=== PATIENT | female | born 1995 | race African-American/Black ===

== ENCOUNTER 2021-01-23 10:03 | Emergency (ER) | payer MEDICAID ==
[~2021-01-23] VITALS: Ht 172.7 cm; Wt 100.0 kg
[2021-01-23] MEDS ORDERED: ONDANSETRON HCL 4MG/2ML INJ IV STA (10:30)
[2021-01-23] MEDS ORDERED: MORPHINE SULFATE 4 MG/ML CPJ (NOT FOR IM USE) IV STA (10:30)
[2021-01-23] MEDS ORDERED: SODIUM CHLORIDE 0.9% 1,000 ML IV ONE (10:30)
[2021-01-23 11:06] LABS: BASOPHILS % 0.6 % (0.0-2.0); EOSINOPHILS % 0.9 % (0.0-5.0); HEMATOCRIT. 39.7 % (36.0-48.0); HEMOGLOBIN. 13.1 g/dL (12.0-16.0); LYMPHOCYTES % 15.6 % (20.0-50.0); MEAN CORPUSCULAR HEMOGLOBIN 26.1 pg (28.0-32.0); MEAN CORPUSCULAR VOLUME 79.2 fL (81.0-99.0); MEAN PLATELET VOLUME 9.4 fl (7.4-10.4); MONOCYTES % 4.8 % (2.0-8.0); NEUTROPHILS % 78.1 % (40.0-76.0); PLATELET 312 x1000/uL (130-400); RED BLOOD CELL COUNT 5.02 mill/uL (4.2-5.4); RED CELL DISTRIBUTION WIDTH 13.6 % (11.6-14.6)
[2021-01-23 11:11] LABS: CHLORIDE 104 mEq/L (98-107)
[2021-01-23 11:20] LABS: B-HCG QUANTITATIVE < 1 mIU/mL (<3)
[2021-01-23 12:34] LABS: CLARITY URINE CLOUDY (CLEAR); COLOR URINE YELLOW (YELLOW); KETONES URINE 3+ (NEGATIVE); LEUKOCYTE ESTERASE URINE NEGATIVE (NEGATIVE); NITRITE URINE NEGATIVE (NEGATIVE); OCCULT BLOOD URINE NEGATIVE (NEGATIVE); PH URINE 7.5 (4.5-8.0); PROTEIN URINE 1+ (NEGATIVE); SPECIFIC GRAVITY URINE 1.035 (1.005-1.030); UROBILINOGEN URINE 0.2 E.U./dL (0.2-1.0)
[2021-01-23] MEDS ORDERED: HYDROMORPHONE HCL/PF 2MG/ML CPJ IV ONE (13:00)
[2021-01-23] MEDS ORDERED: CEPH500T MT (14:14)
[2021-01-23] MEDS ORDERED: TRAM50TA3 MT (14:14)
[2021-01-23] MEDS ORDERED: METR70GE17 VG (14:15)
[2021-01-23 15:14] VITALS: BP 130/68
[2021-01-23] MEDS ORDERED: IOHEXOL-300 100 ML BOTTLE ONE (15:20)
== END 2021-01-23 15:14 | disposition home or self-care (01) ==
LOC: ER 10:40
DX: N39.0 Urinary tract infection, site not specified (principal); R10.32 Left lower quadrant pain
CPT/HCPCS: 36415; 74177; 76830; 76856; 80053; 81003; 83690; 84702; 85025; 96361; 96374; 96375; 99285; J1170; J2270; J2405; J7030; Q9967; Z7610

== ENCOUNTER 2021-01-23 19:19 | Emergency (ER) | payer MEDICAID ==
[~2021-01-23] VITALS: Ht 172.7 cm; Wt 100.0 kg
[~2021-01-23 19:19] MED LIST: CEPH500T MT; METR70GE17 VG; TRAM50TA3 MT
[2021-01-23 19:26] VITALS: BP 148/82
[2021-01-23] MEDS ORDERED: KETOROLAC 30MG/ML VIAL IV STA (20:14)
[2021-01-23] MEDS ORDERED: MIDAZOLAM HCL 2 MG/2 ML VIAL IV ONE (20:15)
[2021-01-23] MEDS ORDERED: SODIUM CHLORIDE 0.9% 1,000 ML IV ONE (20:15)
== END 2021-01-23 21:01 | disposition left against medical advice (07) ==
LOC: ER 19:19
DX: R10.32 Left lower quadrant pain (principal); E11.9 Type 2 diabetes mellitus without complications; J45.909 Unspecified asthma, uncomplicated; Z79.4 Long term (current) use of insulin
CPT/HCPCS: 93005; 99283; J7030; J1885; J2250

== ENCOUNTER 2022-04-03 22:13 | Emergency (ER) | payer MEDICAID ==
[~2022-04-03] VITALS: Ht 170.2 cm; Wt 135.2 kg
[~2022-04-03 22:13] MED LIST changes: +AMLO10TA80 MT; -CEPH500T MT; +INSU100I24 SQ; +METO-293 MT; +[UNRECOGNIZED DRUG - OTHER]
[2022-04-03] MEDS ORDERED: METOCLOPRAMIDE HCL 10MG/2ML VIAL IV STA (22:21)
[2022-04-03] MEDS ORDERED: HALOPERIDOL LACTATE 5MG/ML VIAL IM ONE (22:30)
[2022-04-03 23:13] LABS: BASOPHILS % 0.5 % (0.0-2.0); HEMATOCRIT. 39.3 % (36.0-48.0); HEMOGLOBIN. 12.9 g/dL (12.0-16.0); LYMPHOCYTES % 8.7 % (20.0-50.0); MEAN CORPUSCULAR VOLUME 79.2 fL (81.0-99.0); MEAN PLATELET VOLUME 8.8 fl (7.4-10.4); MONOCYTES % 6.7 % (2.0-8.0); NEUTROPHILS % 84.1 % (40.0-76.0); PLATELET 327 x1000/uL (130-400); RED BLOOD CELL COUNT 4.97 mill/uL (4.2-5.4)
[2022-04-03 23:19] LABS: CHLORIDE 99 mEq/L (98-107)
[2022-04-03 23:27] LABS: BETA HYDROXYBUTYRATE 2.3 mMol/L (0.0-0.3); ETHANOL BLOOD < 10 mg/dL
[2022-04-04 00:11] VITALS: BP 118/67
== END 2022-04-04 00:59 | disposition home or self-care (01) ==
LOC: ER 22:13
DX: R10.9 Unspecified abdominal pain (principal); R11.10 Vomiting, unspecified; E11.65 Type 2 diabetes mellitus with hyperglycemia; F12.10 Cannabis abuse, uncomplicated; F17.290 Nicotine dependence, other tobacco product, uncomplicated; J45.909 Unspecified asthma, uncomplicated; Z79.899 Other long term (current) drug therapy
CPT/HCPCS: 36415; 80053; 80320; 82010; 83690; 85025; 96372; 96374; 99284; J1630; J2765; G0480

== ENCOUNTER 2022-05-03 23:47 | Emergency (ER) | payer MEDICAID ==
[~2022-05-03] VITALS: Ht 170.2 cm; Wt 117.0 kg
[2022-05-04] MEDS ORDERED: ONDANSETRON HCL 4MG/2ML INJ IV STA (00:54)
[2022-05-04] MEDS ORDERED: FAMOTIDINE 20MG/2ML VIAL IV STA (00:54)
[2022-05-04] MEDS ORDERED: HALOPERIDOL LACTATE 5MG/ML VIAL IM ONE (01:00)
[2022-05-04] MEDS ORDERED: SODIUM CHLORIDE 0.9% 1,000 ML IV ONE (01:00)
[2022-05-04 04:29] LABS: HEMOGLOBIN. 11.7 g/dL (12.0-16.0); MEAN CORPUSCULAR HEMOGLOBIN 25.9 pg (28.0-32.0); MEAN CORPUSCULAR VOLUME 79.8 fL (81.0-99.0); PLATELET 344 x1000/uL (130-400); RED BLOOD CELL COUNT 4.52 mill/uL (4.2-5.4); RED CELL DISTRIBUTION WIDTH 14.2 % (11.6-14.6)
[2022-05-04 04:38] LABS: CHLORIDE 105 mEq/L (98-107)
[2022-05-04 04:41] LABS: HCG SCREEN NEGATIVE
[2022-05-04 04:56] LABS: PLATELET ESTIMATE NORMAL
[2022-05-04 05:00] VITALS: BP 115/77
[2022-05-04] MEDS ORDERED: METO-293 MT (05:26)
[2022-05-04] MEDS ORDERED: TRAM50TA3 MT (05:26)
== END 2022-05-04 06:14 | disposition home or self-care (01) ==
LOC: ER 23:47
DX: R10.32 Left lower quadrant pain (principal); J45.909 Unspecified asthma, uncomplicated; E11.9 Type 2 diabetes mellitus without complications; F12.10 Cannabis abuse, uncomplicated
CPT/HCPCS: 36415; 80053; 83605; 83690; 84703; 85025; 96361; 96372; 96374; 96375; 99284; J1630; J2405; J3490; J7030

== ENCOUNTER 2022-05-23 19:50 | Emergency (ER) | payer MEDICAID ==
[~2022-05-23] VITALS: Ht 167.6 cm; Wt 91.0 kg
[2022-05-23] MEDS ORDERED: CALCIUM GLUCONATE 100MG/ML 10ML VIAL IV ONE (21:30)
[2022-05-23] MEDS ORDERED: MAGNESIUM 1 G PREMIX 100 ML IV ONE (21:30)
[2022-05-23] MEDS ORDERED: FAMOTIDINE 20MG/2ML VIAL IV ONE (21:45)
[2022-05-23] MEDS ORDERED: METOCLOPRAMIDE HCL 10MG/2ML VIAL IV ONE (21:45)
[2022-05-23] MEDS ORDERED: MORPHINE SULFATE 4 MG/ML CPJ (NOT FOR IM USE) IV ONE (22:30)
[2022-05-23 23:00] LABS: BASOPHILS % 0.3 % (0.0-2.0); EOSINOPHILS % 0.5 % (0.0-5.0); HEMATOCRIT. 36.7 % (36.0-48.0); HEMOGLOBIN. 11.8 g/dL (12.0-16.0); LYMPHOCYTES % 12.8 % (20.0-50.0); MEAN CORPUSCULAR HEMOGLOBIN 26.3 pg (28.0-32.0); MEAN PLATELET VOLUME 8.9 fl (7.4-10.4); MONOCYTES % 5.4 % (2.0-8.0); PLATELET 342 x1000/uL (130-400); RED BLOOD CELL COUNT 4.48 mill/uL (4.2-5.4); RED CELL DISTRIBUTION WIDTH 14.4 % (11.6-14.6)
[2022-05-23 23:03] LABS: CHLORIDE 100 mEq/L (98-107)
[2022-05-23 23:07] LABS: PROTHROMBIN TIME 11.2 sec (9.6-11.0)
[2022-05-23 23:26] LABS: CLARITY URINE CLEAR (CLEAR); COLOR URINE DARK YELLOW (YELLOW); KETONES URINE 4+ (NEGATIVE); LEUKOCYTE ESTERASE URINE 1+ (NEGATIVE); NITRITE URINE POSITIVE (NEGATIVE); OCCULT BLOOD URINE TRACE (NEGATIVE); PH URINE 5.5 (4.5-8.0); PROTEIN URINE 1+ (NEGATIVE); SPECIFIC GRAVITY URINE 1.037 (1.005-1.030)
[2022-05-23] MEDS ORDERED: KETOROLAC 15MG/ML VIAL IV ONE (23:45)
[2022-05-24] MEDS ORDERED: DIATR MEGLU/DIATRIZOATE SOLN 30ML ONE (01:14)
[2022-05-24 04:00] VITALS: BP 150/79
[2022-05-24] MEDS ORDERED: VISCOUS LIDOCAINE 2% 15 ML UDC PO ONE (04:45)
[2022-05-24] MEDS ORDERED: CAPSAICIN 0.075% CREAM 60GM TOP PRN (04:45)
[2022-05-24] MEDS ORDERED: MAGNESIUM/ALUMINUM HYDROXIDE/SIMETHICONE 30ML UDC PO ONE (04:45)
[2022-05-24] MEDS ORDERED: IOHEXOL-300 100 ML BOTTLE ONE (05:03)
[2022-05-24] MEDS ORDERED: CEPH500C2 MT (06:23)
[2022-05-24] MEDS ORDERED: ONDA4TAB50 MT (06:23)
== END 2022-05-24 05:35 | disposition home or self-care (01) ==
LOC: ER 19:50
DX: E11.43 Type 2 diabetes mellitus with diabetic autonomic (poly)neuropathy (principal); K31.84 Gastroparesis; F12.188 Cannabis abuse with other cannabis-induced disorder; K56.1 Intussusception; K52.9 Noninfective gastroenteritis and colitis, unspecified; J45.909 Unspecified asthma, uncomplicated; Z79.4 Long term (current) use of insulin
CPT/HCPCS: 36415; 74178; 80053; 81003; 81025; 83605; 83690; 83735; 85025; 85610; 93005; 96365; 96366; 96375; 99285; J0610; J1885; J2270; J2765; J3475; J3490; Q9963; Q9967

== ENCOUNTER 2022-05-24 06:06 | Emergency (ER) | payer MEDICAID ==
[~2022-05-24] VITALS: Ht 175.3 cm; Wt 123.0 kg
[2022-05-24 06:07] VITALS: BP 133/78
[2022-05-24] MEDS ORDERED: ONDA4TAB50 MT (06:23)
[2022-05-24] MEDS ORDERED: CEPH500C2 MT (06:23)
[2022-05-24] MEDS ORDERED: HALOPERIDOL LACTATE 5MG/ML VIAL IM ONE (06:30)
== END 2022-05-24 06:59 | disposition home or self-care (01) ==
LOC: ER 06:06
DX: N30.00 Acute cystitis without hematuria (principal); E11.9 Type 2 diabetes mellitus without complications; J45.909 Unspecified asthma, uncomplicated; Z79.4 Long term (current) use of insulin
CPT/HCPCS: 96372; 99283; J1630

== ENCOUNTER 2022-05-25 04:42 | Emergency (ER) | payer MEDICAID ==
[~2022-05-25] VITALS: Ht 175.3 cm; Wt 100.0 kg
[~2022-05-25 04:42] MED LIST changes: +CEPH500C2 MT; +ONDA4TAB50 MT
[2022-05-25 04:52] VITALS: BP 189/117
[2022-05-25] MEDS ORDERED: VISCOUS LIDOCAINE 2% 15 ML UDC PO ONE (05:00)
[2022-05-25] MEDS ORDERED: MAGNESIUM/ALUMINUM HYDROXIDE/SIMETHICONE 30ML UDC PO ONE (05:00)
== END 2022-05-25 05:04 | disposition left against medical advice (07) ==
LOC: ER 04:42
DX: R10.9 Unspecified abdominal pain (principal); G89.29 Other chronic pain; R11.10 Vomiting, unspecified; J45.909 Unspecified asthma, uncomplicated; E11.9 Type 2 diabetes mellitus without complications; F12.10 Cannabis abuse, uncomplicated; Z79.899 Other long term (current) drug therapy
CPT/HCPCS: 99283

== ENCOUNTER 2023-08-16 23:44 | Emergency (ER) | payer MEDICAID ==
[~2023-08-16] VITALS: Ht 170.2 cm; Wt 80.0 kg
[2023-08-16 23:46] VITALS: TEMP 98.5; O2SAT 98
[2023-08-17] MEDS ORDERED: FAMOTIDINE 20MG/2ML VIAL IV STA (00:50)
[2023-08-17] MEDS ORDERED: ONDANSETRON HCL 4MG/2ML INJ IV STA ×2 (00:50→03:41)
[2023-08-17] MEDS ORDERED: KETOROLAC 30MG/ML VIAL IV STA (00:50)
[2023-08-17] MEDS ORDERED: SODIUM CHLORIDE 0.9% 1,000 ML IV ONE (01:00)
[2023-08-17] MEDS ORDERED: HALOPERIDOL LACTATE 5MG/ML VIAL IM ONE (01:00)
[2023-08-17 01:13] LABS: BASOPHILS % 0.3 % (0.0-2.0); EOSINOPHILS % 0.5 % (0.0-5.0); HEMATOCRIT. 34.6 % (36.0-48.0); HEMOGLOBIN. 11.1 g/dL (12.0-16.0); LYMPHOCYTES % 14.3 % (20.0-50.0); MEAN CORPUSCULAR HEMOGLOBIN 25.8 pg (28.0-32.0); MEAN CORPUSCULAR HGB CONC 32.1 g/dL (31.0-37.0); MEAN CORPUSCULAR VOLUME 80.5 fL (81.0-99.0); MEAN PLATELET VOLUME 8.3 fl (7.4-10.4); MONOCYTES % 6.5 % (2.0-8.0); NEUTROPHILS % 78.4 % (40.0-76.0); PLATELET 369 x1000/uL (130-400); RED CELL DISTRIBUTION WIDTH 15.2 % (11.6-14.6); WHITE BLOOD COUNT 10.8 x1000/uL (4.5-11.0)
[2023-08-17 01:26] LABS: HCG SCREEN NEGATIVE
[2023-08-17 01:48] LABS: *AMPHETAMINES SCREEN URINE NEGATIVE (NEGATIVE); *BARBITURATES SCREEN URINE NEGATIVE (NEGATIVE); *BENZODIAZEPINES SCREEN URINE NEGATIVE (NEGATIVE); *COCAINE SCREEN URINE NEGATIVE (NEGATIVE); CANNABINOID URINE SCREEN PRESUMPTIVE POSITIVE (NEGATIVE); ECSTASY MDMA SCREEN URINE NEGATIVE (NEGATIVE); METHADONE URINE SCREEN Neg (NEGATIVE); OPIATES URINE SCREEN PRESUMPTIVE POSITIVE (NEGATIVE); PHENCYCLIDINE URINE SCREEN NEGATIVE (NEGATIVE)
[2023-08-17 02:44] LABS: CLARITY URINE CLOUDY (CLEAR); COLOR URINE YELLOW (YELLOW); PROTEIN URINE TRACE (NEGATIVE); SPECIFIC GRAVITY URINE 1.025 (1.005-1.030)
[2023-08-17 02:45] LABS: GLUCOSE URINE NEGATIVE (NEGATIVE); KETONES URINE 3+ (NEGATIVE); LEUKOCYTE ESTERASE URINE 1+ (NEGATIVE); NITRITE URINE NEGATIVE (NEGATIVE); OCCULT BLOOD URINE NEGATIVE (NEGATIVE); UROBILINOGEN URINE 0.2 E.U./dL (0.2-1.0)
[2023-08-17] MEDS ORDERED: CEFTRIAXONE 1GM PREMIX 50 ML IV NR (03:00)
[2023-08-17 03:29] LABS: SQUAMOUS EPITHELIAL CELL URINE 1+ /lpf (RARE/1+)
[2023-08-17 03:35] LABS: WBC URINE 15-25 /hpf (0-2)
[2023-08-17 03:37] LABS: BACTERIA URINE 1+; TRICHOMONAS URINE 1+
[2023-08-17] MEDS ORDERED: HYDROCODONE/ACETAMINOPHEN 5/325MG TABLET PO STA (03:41)
[2023-08-17] MEDS ORDERED: ONDA4TAB11 PO (03:51)
[2023-08-17] MEDS ORDERED: TRAM-529 PO (03:51)
[2023-08-17] MEDS ORDERED: SULF1TAB48 PO (03:51)
[2023-08-17 03:57] VITALS: BP 137/93; PULSE 69; RESP 18
[2023-08-17 04:00] LABS: CHLORIDE 104 mEq/L (98-107); POTASSIUM 3.6 mEq/L (3.5-5.1); SODIUM 138 mEq/L (136-145)
[2023-08-17] MEDS ORDERED: METRONIDAZOLE 500 MG PREMIX 100 ML IV NR (04:00)
[2023-08-17 04:01] LABS: GLUCOSE 111 mg/dL (70-105)
[2023-08-17 04:02] LABS: ALBUMIN 4.4 g/dL (3.2-4.8); BILIRUBIN TOTAL 0.6 mg/dL (0.1-1.0); CALCIUM 9.2 mg/dL (8.7-10.4); CREATININE 0.7 mg/dL (0.6-1.0); PROTEIN TOTAL 6.9 g/dL (6.0-8.3); UREA NITROGEN BLOOD < 5 mg/dL (9-23)
[2023-08-17] MEDS ORDERED: METR-167 MT (04:02)
[2023-08-17 04:03] LABS: ALANINE AMINOTRANSFERASE 16 IU/L (10-49); ASPARTATE AMINOTRANSFERASE 20 IU/L (<34); ETHANOL BLOOD < 10 mg/dL (<10)
== END 2023-08-17 05:20 | disposition home or self-care (01) ==
LOC: ER 23:44
DX: N39.0 Urinary tract infection, site not specified (principal); R10.32 Left lower quadrant pain; A59.9 Trichomoniasis, unspecified; F14.10 Cocaine abuse, uncomplicated; J45.909 Unspecified asthma, uncomplicated; E11.9 Type 2 diabetes mellitus without complications; K21.9 Gastro-esophageal reflux disease without esophagitis; F12.10 Cannabis abuse, uncomplicated
CPT/HCPCS: 81025; 99285; 80053; 80305; 81003; 80320; 84703; 83690; 85025; 87086; 36415; 74176; J0696; J3490 ×2; J1630; J1885; J2405; J7030; Z7610 ×3; G0480

== ENCOUNTER 2023-08-23 05:50 | Emergency (ER) | payer MEDICAID ==
[~2023-08-23] VITALS: Ht 175.3 cm; Wt 127.0 kg
[~2023-08-23 05:50] MED LIST changes: +METR-167 MT; +ONDA4TAB11 PO; +SULF1TAB48 PO; +TRAM-529 PO
[2023-08-23 05:55] VITALS: TEMP 98.5; O2SAT 99
[2023-08-23 07:02] LABS: BASOPHILS % 0.6 % (0.0-2.0); DIFFERENTIAL COMMENT 0; EOSINOPHILS % 1.3 % (0.0-5.0); HEMATOCRIT. 33.6 % (36.0-48.0); HEMOGLOBIN. 10.8 g/dL (12.0-16.0); MEAN CORPUSCULAR HEMOGLOBIN 25.3 pg (28.0-32.0); MEAN CORPUSCULAR HGB CONC 32.1 g/dL (31.0-37.0); MEAN CORPUSCULAR VOLUME 78.9 fL (81.0-99.0); MEAN PLATELET VOLUME 8.6 fl (7.4-10.4); MONOCYTES % 7.7 % (2.0-8.0); NEUTROPHILS % 79.4 % (40.0-76.0); PLATELET 303 x1000/uL (130-400); RED BLOOD CELL COUNT 4.25 mill/uL (4.2-5.4); RED CELL DISTRIBUTION WIDTH 16.2 % (11.6-14.6); WHITE BLOOD COUNT 9.6 x1000/uL (4.5-11.0)
[2023-08-23 07:08] LABS: HCG SCREEN NEGATIVE
[2023-08-23 07:13] LABS: ALANINE AMINOTRANSFERASE 14 IU/L (10-49); ALBUMIN 4.2 g/dL (3.2-4.8); ASPARTATE AMINOTRANSFERASE 15 IU/L (<34); BILIRUBIN TOTAL 0.7 mg/dL (0.1-1.0); CALCIUM 9.2 mg/dL (8.7-10.4); CARBON DIOXIDE 25 mEq/L (21-32); CHLORIDE 107 mEq/L (98-107); CREATININE 0.7 mg/dL (0.6-1.0); GLUCOSE 151 mg/dL (70-105); POTASSIUM 3.6 mEq/L (3.5-5.1); SODIUM 140 mEq/L (136-145); UREA NITROGEN BLOOD 6 mg/dL (9-23)
[2023-08-23 07:14] LABS: ETHANOL BLOOD < 10 mg/dL (<10)
[2023-08-23 09:00] VITALS: BP 132/84; PULSE 72; RESP 16
[2023-08-23] MEDS ORDERED: KETOROLAC 60MG/2ML VIAL IM ONE (09:00)
[2023-08-23] MEDS ORDERED: ONDANSETRON HCL 4MG/2ML INJ IM ONE (09:00)
[2023-08-23] MEDS ORDERED: HALOPERIDOL LACTATE 5MG/ML VIAL IM ONE (09:00)
[2023-08-23 10:10] LABS: CLARITY URINE CLOUDY (CLEAR); COLOR URINE YELLOW (YELLOW); GLUCOSE URINE NEGATIVE (NEGATIVE); PROTEIN URINE TRACE (NEGATIVE)
[2023-08-23 10:11] LABS: KETONES URINE NEGATIVE (NEGATIVE); LEUKOCYTE ESTERASE URINE TRACE (NEGATIVE); NITRITE URINE NEGATIVE (NEGATIVE); OCCULT BLOOD URINE NEGATIVE (NEGATIVE); UROBILINOGEN URINE 0.2 E.U./dL (0.2-1.0)
[2023-08-23 10:16] LABS: BACTERIA URINE 2+; RBC URINE 0-2 /hpf (0-2); SQUAMOUS EPITHELIAL CELL URINE 2+ /lpf (RARE/1+); YEAST URINE NONE SEEN
[2023-08-23 10:31] LABS: *AMPHETAMINES SCREEN URINE NEGATIVE (NEGATIVE); *BARBITURATES SCREEN URINE NEGATIVE (NEGATIVE); *BENZODIAZEPINES SCREEN URINE NEGATIVE (NEGATIVE); *COCAINE SCREEN URINE NEGATIVE (NEGATIVE); CANNABINOID URINE SCREEN PRESUMPTIVE POSITIVE (NEGATIVE); ECSTASY MDMA SCREEN URINE NEGATIVE (NEGATIVE); METHADONE URINE SCREEN Neg (NEGATIVE); OPIATES URINE SCREEN NEGATIVE (NEGATIVE); PHENCYCLIDINE URINE SCREEN NEGATIVE (NEGATIVE)
[2023-08-23] MEDS ORDERED: ONDA4TAB11 PO (12:04)
[2023-08-23] MEDS ORDERED: FAMO-134 MT (12:04)
== END 2023-08-23 12:56 | disposition home or self-care (01) ==
LOC: ER 05:57
DX: R11.2 Nausea with vomiting, unspecified (principal); K31.84 Gastroparesis; F12.90 Cannabis use, unspecified, uncomplicated; J45.909 Unspecified asthma, uncomplicated
CPT/HCPCS: 80053; 80305; 81003; 81025; 80320; 84703; 83690; 85025; 36415; 76705; 96372; 99285; J1630; J1885; J2405; Z7610; G0480

== ENCOUNTER 2023-08-29 00:43 | Emergency (ER) | payer MEDICAID ==
[~2023-08-29] VITALS: Ht 172.7 cm; Wt 80.0 kg
[~2023-08-29 00:43] MED LIST changes: +FAMO-134 MT
[2023-08-29 00:49] VITALS: BP 153/98; PULSE 78; RESP 22; TEMP 98.2; O2SAT 98
== END 2023-08-29 05:00 | disposition left against medical advice (07) ==
LOC: ER 01:49
DX: R10.9 Unspecified abdominal pain (principal); Z53.21 Procedure and treatment not carried out due to patient leaving prior to being seen by health care provider
CPT/HCPCS: 99281

== ENCOUNTER 2023-08-31 02:07 | Emergency (ER) | payer MEDICAID ==
[~2023-08-31] VITALS: Ht 177.8 cm; Wt 100.0 kg
[2023-08-31 02:19] VITALS: TEMP 98.6; O2SAT 99
[2023-08-31] MEDS ORDERED: ONDANSETRON HCL 4MG/2ML INJ IV STA (03:29)
[2023-08-31] MEDS ORDERED: MORPHINE SULFATE 4 MG/ML CPJ (NOT FOR IM USE) IV STA (03:29)
[2023-08-31] MEDS ORDERED: SODIUM CHLORIDE 0.9% 1,000 ML IV ONE (03:30)
[2023-08-31 03:51] LABS: BASOPHILS % 0.4 % (0.0-2.0); EOSINOPHILS % 0.2 % (0.0-5.0); HEMATOCRIT. 33.7 % (36.0-48.0); HEMOGLOBIN. 10.6 g/dL (12.0-16.0); LYMPHOCYTES % 9.8 % (20.0-50.0); MEAN CORPUSCULAR HEMOGLOBIN 25.5 pg (28.0-32.0); MEAN CORPUSCULAR HGB CONC 31.6 g/dL (31.0-37.0); MEAN CORPUSCULAR VOLUME 80.8 fL (81.0-99.0); MEAN PLATELET VOLUME 8.5 fl (7.4-10.4); MONOCYTES % 2.8 % (2.0-8.0); NEUTROPHILS % 86.8 % (40.0-76.0); PLATELET 298 x1000/uL (130-400); RED BLOOD CELL COUNT 4.17 mill/uL (4.2-5.4); RED CELL DISTRIBUTION WIDTH 16.2 % (11.6-14.6); WHITE BLOOD COUNT 7.5 x1000/uL (4.5-11.0)
[2023-08-31 04:18] LABS: ALANINE AMINOTRANSFERASE 20 IU/L (10-49); ASPARTATE AMINOTRANSFERASE 21 IU/L (<34); BETA HYDROXYBUTYRATE 0.1 mMol/L (0.0-0.3); BILIRUBIN TOTAL 0.3 mg/dL (0.1-1.0); CALCIUM 8.9 mg/dL (8.7-10.4); CARBON DIOXIDE 26 mEq/L (21-32); CHLORIDE 105 mEq/L (98-107); CREATININE 0.7 mg/dL (0.6-1.0); GLUCOSE 201 mg/dL (70-105); POTASSIUM 3.7 mEq/L (3.5-5.1); SODIUM 139 mEq/L (136-145); UREA NITROGEN BLOOD 6 mg/dL (9-23)
[2023-08-31 04:41] LABS: ETHANOL BLOOD < 10 mg/dL (<10)
[2023-08-31 05:17] LABS: HCG SCREEN NEGATIVE
[2023-08-31] MEDS ORDERED: ONDA4TAB50 MT (05:23)
[2023-08-31 05:50] VITALS: BP 148/92; PULSE 88; RESP 18
[2023-09-10] MEDS ORDERED: ALBU18HF2 IH (11:44)
[2023-09-10] MEDS ORDERED: FLUT1DIS3 INH (11:44)
[2023-09-10] MEDS ORDERED: P20 MT (11:44)
== END 2023-08-31 06:25 | disposition home or self-care (01) ==
LOC: ER 02:15
DX: K31.84 Gastroparesis (principal); R11.10 Vomiting, unspecified; F12.120 Cannabis abuse with intoxication, uncomplicated; J45.909 Unspecified asthma, uncomplicated; E11.9 Type 2 diabetes mellitus without complications
CPT/HCPCS: 80053; 82010; 80320; 84703; 83605; 83690; 85025; 36415; 96361; 96374; 96375; 99284; J2405; J2270; J7030; Z7610; G0480

== ENCOUNTER 2023-09-06 21:47 | Emergency (ER) | payer MEDICAID ==
[~2023-09-06] VITALS: Ht 175.3 cm; Wt 82.0 kg
[2023-09-06 21:54] VITALS: BP 152/101; PULSE 96; RESP 18; TEMP 98.4; O2SAT 98
[2023-09-06] MEDS ORDERED: HALOPERIDOL LACTATE 5MG/ML VIAL IM ONE (22:00)
[2023-09-06] MEDS ORDERED: CAPSAICIN 0.075% CREAM 60GM TOP PRN (22:00)
[2023-09-07 00:41] LABS: HEMATOCRIT. 34.7 % (36.0-48.0); HEMOGLOBIN. 10.8 g/dL (12.0-16.0); MEAN CORPUSCULAR HGB CONC 31.2 g/dL (31.0-37.0); MEAN CORPUSCULAR VOLUME 80.1 fL (81.0-99.0); MEAN PLATELET VOLUME 8.4 fl (7.4-10.4); PLATELET 306 x1000/uL (130-400); RED BLOOD CELL COUNT 4.33 mill/uL (4.2-5.4); RED CELL DISTRIBUTION WIDTH 16.5 % (11.6-14.6); WHITE BLOOD COUNT 11.9 x1000/uL (4.5-11.0)
[2023-09-07 00:42] LABS: DIFFERENTIAL COMMENT 1
[2023-09-07 00:54] LABS: ALANINE AMINOTRANSFERASE 15 IU/L (10-49); ALBUMIN 4.1 g/dL (3.2-4.8); ASPARTATE AMINOTRANSFERASE 18 IU/L (<34); BILIRUBIN TOTAL 0.6 mg/dL (0.1-1.0); CALCIUM 9.2 mg/dL (8.7-10.4); CARBON DIOXIDE 24 mEq/L (21-32); CHLORIDE 105 mEq/L (98-107); CREATININE 0.7 mg/dL (0.6-1.0); GLUCOSE 140 mg/dL (70-105); POTASSIUM 3.7 mEq/L (3.5-5.1); PROTEIN TOTAL 7.3 g/dL (6.0-8.3); SODIUM 138 mEq/L (136-145); UREA NITROGEN BLOOD 7 mg/dL (9-23)
[2023-09-07 00:57] LABS: HCG SCREEN NEGATIVE
[2023-09-07 01:02] LABS: ETHANOL BLOOD < 10 mg/dL (<10)
[2023-09-07 01:15] LABS: CLARITY URINE TURBID (CLEAR); COLOR URINE YELLOW (YELLOW); GLUCOSE URINE NEGATIVE (NEGATIVE); KETONES URINE 3+ (NEGATIVE); LEUKOCYTE ESTERASE URINE 1+ (NEGATIVE); NITRITE URINE NEGATIVE (NEGATIVE); OCCULT BLOOD URINE NEGATIVE (NEGATIVE); PROTEIN URINE TRACE (NEGATIVE); SPECIFIC GRAVITY URINE 1.017 (1.005-1.030); UROBILINOGEN URINE 0.2 E.U./dL (0.2-1.0)
[2023-09-07 01:22] LABS: *AMPHETAMINES SCREEN URINE NEGATIVE (NEGATIVE); *BARBITURATES SCREEN URINE NEGATIVE (NEGATIVE); *BENZODIAZEPINES SCREEN URINE NEGATIVE (NEGATIVE); *COCAINE SCREEN URINE NEGATIVE (NEGATIVE); CANNABINOID URINE SCREEN PRESUMPTIVE POSITIVE (NEGATIVE); ECSTASY MDMA SCREEN URINE NEGATIVE (NEGATIVE); METHADONE URINE SCREEN Neg (NEGATIVE); OPIATES URINE SCREEN NEGATIVE (NEGATIVE); PHENCYCLIDINE URINE SCREEN NEGATIVE (NEGATIVE)
[2023-09-07 03:25] LABS: SQUAMOUS EPITHELIAL CELL URINE 3+ /lpf (RARE/1+)
[2023-09-07 03:27] LABS: RBC URINE 0-2 /hpf (0-2); WBC URINE 0-2 /hpf (0-2)
[2023-09-07 03:28] LABS: BACTERIA URINE 2+
[2023-09-07] MEDS ORDERED: METO5TAB86 MT (04:00)
[2023-09-07 04:52] LABS: PLATELET ESTIMATE NORMAL
[2023-09-10] MEDS ORDERED: P20 MT (11:44)
[2023-09-10] MEDS ORDERED: FLUT1DIS3 INH (11:44)
[2023-09-10] MEDS ORDERED: ALBU18HF2 IH (11:44)
== END 2023-09-07 04:08 | disposition home or self-care (01) ==
LOC: ER 21:47
DX: K31.84 Gastroparesis (principal); F12.10 Cannabis abuse, uncomplicated; R11.2 Nausea with vomiting, unspecified; J45.909 Unspecified asthma, uncomplicated; E11.9 Type 2 diabetes mellitus without complications
CPT/HCPCS: 36415; 96372; 99283; 80053; 80305; 81003; 80320; 84703; 83690; 85025; J1630; G0480

== ENCOUNTER 2023-10-17 08:40 | Emergency (ER) | payer MEDICAID ==
[~2023-10-17] VITALS: Ht 175.3 cm; Wt 99.0 kg
[~2023-10-17 08:40] MED LIST changes: +ALBU18HF2 IH; -CEPH500C2 MT; +FLUT1DIS3 INH; -METO-293 MT; -METR-167 MT; -METR70GE17 VG; -ONDA4TAB11 PO; -ONDA4TAB50 MT; +P20 MT; -SULF1TAB48 PO; -TRAM-529 PO; -TRAM50TA3 MT
[2023-10-17 08:45] VITALS: BP 186/116; PULSE 87; RESP 18; O2SAT 93
[2023-10-17] MEDS ORDERED: SODIUM CHLORIDE 0.9% 1,000 ML IV ONE (09:00)
[2023-10-17] MEDS ORDERED: FAMOTIDINE 20MG/2ML VIAL IV ONE (09:00)
[2023-10-17] MEDS ORDERED: DIPHENHYDRAMINE 50MG/ML VIAL IV ONE (09:00)
[2023-10-17] MEDS ORDERED: HALOPERIDOL LACTATE 5MG/ML VIAL IM ONE (09:00)
[2023-10-17 09:58] LABS: BASOPHILS % 0.3 % (0.0-2.0); DIFFERENTIAL COMMENT 0; EOSINOPHILS % 0.5 % (0.0-5.0); HEMATOCRIT. 36.4 % (36.0-48.0); HEMOGLOBIN. 11.3 g/dL (12.0-16.0); LYMPHOCYTES % 12.9 % (20.0-50.0); MEAN CORPUSCULAR HEMOGLOBIN 24.8 pg (28.0-32.0); MEAN CORPUSCULAR HGB CONC 31.1 g/dL (31.0-37.0); MEAN CORPUSCULAR VOLUME 79.9 fL (81.0-99.0); MEAN PLATELET VOLUME 8.9 fl (7.4-10.4); MONOCYTES % 6.1 % (2.0-8.0); NEUTROPHILS % 80.2 % (40.0-76.0); PLATELET 440 x1000/uL (130-400); RED BLOOD CELL COUNT 4.55 mill/uL (4.2-5.4); RED CELL DISTRIBUTION WIDTH 16.8 % (11.6-14.6); WHITE BLOOD COUNT 14.3 x1000/uL (4.5-11.0)
[2023-10-17 10:21] LABS: ALANINE AMINOTRANSFERASE 27 IU/L (10-49); ALBUMIN 4.6 g/dL (3.2-4.8); ASPARTATE AMINOTRANSFERASE 37 IU/L (<34); BILIRUBIN TOTAL 0.7 mg/dL (0.1-1.0); CALCIUM 9.3 mg/dL (8.7-10.4); CARBON DIOXIDE 20 mEq/L (21-32); CHLORIDE 103 mEq/L (98-107); CREATININE 0.8 mg/dL (0.6-1.0); ETHANOL BLOOD < 10 mg/dL (<10); GLUCOSE 186 mg/dL (70-105); POTASSIUM 3.4 mEq/L (3.5-5.1); SODIUM 137 mEq/L (136-145); UREA NITROGEN BLOOD 11 mg/dL (9-23)
[2023-10-17 10:30] LABS: HCG SCREEN NEGATIVE
[2023-10-18] MEDS ORDERED: MAG355OR21 MT (11:42)
[2023-10-18] MEDS ORDERED: METO-293 MT (11:42)
[2023-10-18] MEDS ORDERED: TOPUD MT (11:42)
== END 2023-10-17 10:01 | disposition left against medical advice (07) ==
LOC: ER 08:42
DX: R10.9 Unspecified abdominal pain (principal); F12.90 Cannabis use, unspecified, uncomplicated
CPT/HCPCS: 80053; 80320; 84703; 83690; 85025; 36415; 96361; 96372; 96374; 96375; 99284; J1200; J3490; J1630; J7030; Z7610 ×3; G0480

== ENCOUNTER 2023-10-17 10:39 | Emergency (ER) | payer MEDICAID ==
[~2023-10-17] VITALS: Ht 177.8 cm; Wt 99.0 kg
[2023-10-17 10:45] VITALS: O2SAT 99
[2023-10-17] MEDS ORDERED: CAPSAICIN 0.075% CREAM 60GM TOP PRN (11:15)
[2023-10-17] MEDS ORDERED: SODIUM CHLORIDE 0.9% 1,000 ML IV ONE (11:15)
[2023-10-17] MEDS ORDERED: LORAZEPAM 2MG/ML INJ IV ONE (11:15)
[2023-10-17] MEDS ORDERED: DIPHENHYDRAMINE 50MG/ML VIAL IV ONE (11:15)
[2023-10-17] MEDS ORDERED: METOCLOPRAMIDE HCL 10MG/2ML VIAL IV ONE (11:15)
[2023-10-17 13:40] VITALS: BP 140/78; PULSE 78; RESP 16; TEMP 98.2
[2023-10-18] MEDS ORDERED: MAG355OR21 MT (11:42)
[2023-10-18] MEDS ORDERED: METO-293 MT (11:42)
[2023-10-18] MEDS ORDERED: TOPUD MT (11:42)
== END 2023-10-17 13:43 | disposition home or self-care (01) ==
LOC: ER 10:47
DX: R11.10 Vomiting, unspecified (principal); R11.15 Cyclical vomiting syndrome unrelated to migraine; F12.90 Cannabis use, unspecified, uncomplicated
CPT/HCPCS: 99284; 96374; 96375; 96361; J1200; J2060; J2765; J7030

== ENCOUNTER 2023-10-18 06:14 | Emergency (ER) | payer MEDICAID ==
[~2023-10-18] VITALS: Ht 180.3 cm; Wt 118.0 kg
[2023-10-18 06:16] VITALS: BP 140/76; PULSE 100; RESP 18; TEMP 98.3; O2SAT 98
[2023-10-18] MEDS ORDERED: MAGNESIUM/ALUMINUM HYDROXIDE/SIMETHICONE 30ML UDC PO ONE (06:45)
[2023-10-18] MEDS ORDERED: METOCLOPRAMIDE HCL 10MG TABLET PO ONE (06:45)
[2023-10-18] MEDS ORDERED: PANTOPRAZOLE 40MG DR TABLET PO ONE (06:45)
[2023-10-18] MEDS ORDERED: ACETAMINOPHEN 325MG TABLET PO ONE (06:45)
[2023-10-18] MEDS ORDERED: LORAZEPAM 1MG TABLET PO ONE (06:45)
[2023-10-18] MEDS ORDERED: METOCLOPRAMIDE HCL 10MG TABLET PO NR (07:15)
[2023-10-18] MEDS ORDERED: MAG355OR21 MT (11:42)
[2023-10-18] MEDS ORDERED: TOPUD MT (11:42)
[2023-10-18] MEDS ORDERED: METO-293 MT (11:42)
== END 2023-10-18 12:35 | disposition home or self-care (01) ==
LOC: ER 06:14
DX: R10.9 Unspecified abdominal pain (principal); F12.10 Cannabis abuse, uncomplicated; J45.909 Unspecified asthma, uncomplicated; Z79.899 Other long term (current) drug therapy; Z98.890 Other specified postprocedural states
CPT/HCPCS: 99284; 82962; J8597

== ENCOUNTER 2023-11-05 07:52 | Emergency (ER) | payer MEDICAID ==
[~2023-11-05] VITALS: Ht 172.7 cm; Wt 100.0 kg
[~2023-11-05 07:52] MED LIST changes: +MAG355OR21 MT; +METO-293 MT; +TOPUD MT
[2023-11-05 07:57] VITALS: O2SAT 99
[2023-11-05] MEDS: SODIUM CHLORIDE 0.9% 1,000 ML IV ONE (08:00)
[2023-11-05] MEDS: DIPHENHYDRAMINE 50MG/ML VIAL IM PRN (08:12)
[2023-11-05] MEDS: HALOPERIDOL LACTATE 5MG/ML VIAL IM ONE (08:12)
[2023-11-05] MEDS: LORAZEPAM 2MG/ML INJ IM ONE (08:12)
[2023-11-05 10:12] LABS: BASOPHILS % 0.3 % (0.0-2.0); DIFFERENTIAL COMMENT 0; EOSINOPHILS % 0.1 % (0.0-5.0); HEMATOCRIT. 34.1 % (36.0-48.0); HEMOGLOBIN. 10.9 g/dL (12.0-16.0); LYMPHOCYTES % 7.6 % (20.0-50.0); MEAN CORPUSCULAR HEMOGLOBIN 25.2 pg (28.0-32.0); MEAN CORPUSCULAR HGB CONC 31.9 g/dL (31.0-37.0); MEAN CORPUSCULAR VOLUME 78.9 fL (81.0-99.0); MEAN PLATELET VOLUME 8.4 fl (7.4-10.4); MONOCYTES % 2.2 % (2.0-8.0); NEUTROPHILS % 89.8 % (40.0-76.0); PLATELET 306 x1000/uL (130-400); RED BLOOD CELL COUNT 4.33 mill/uL (4.2-5.4); WHITE BLOOD COUNT 9.8 x1000/uL (4.5-11.0)
[2023-11-05 10:28] LABS: HCG SCREEN NEGATIVE
[2023-11-05 10:29] LABS: INR 0.9; PROTHROMBIN TIME 10.1 sec (9.6-11.0)
[2023-11-05 10:40] LABS: ALANINE AMINOTRANSFERASE 29 IU/L (10-49); ALBUMIN 4.6 g/dL (3.2-4.8); ASPARTATE AMINOTRANSFERASE 30 IU/L (<34); BILIRUBIN TOTAL 0.3 mg/dL (0.1-1.0); CALCIUM 9.1 mg/dL (8.7-10.4); CARBON DIOXIDE 26 mEq/L (21-32); CHLORIDE 107 mEq/L (98-107); CREATININE 0.8 mg/dL (0.6-1.0); GLUCOSE 199 mg/dL (70-105); POTASSIUM 3.8 mEq/L (3.5-5.1); PROTEIN TOTAL 7.7 g/dL (6.0-8.3); SODIUM 140 mEq/L (136-145); UREA NITROGEN BLOOD 8 mg/dL (9-23)
[2023-11-05] MEDS ORDERED: ONDA4TAB11 PO (13:31)
[2023-11-05] MEDS ORDERED: METO10TA3 MT (13:31)
[2023-11-05 14:08] VITALS: BP 170/100; PULSE 76; RESP 16
== END 2023-11-05 14:12 | disposition home or self-care (01) ==
LOC: ER 07:52
DX: R11.2 Nausea with vomiting, unspecified (principal); F12.10 Cannabis abuse, uncomplicated; J45.909 Unspecified asthma, uncomplicated; E11.9 Type 2 diabetes mellitus without complications; Z79.899 Other long term (current) drug therapy; Z98.890 Other specified postprocedural states; Z87.19 Personal history of other diseases of the digestive system
CPT/HCPCS: 80053; 84703; 83690; 85025; 85610; 36415; 96360; 96361; 96372; 99284; J1200; J1630; J2060; J7030; Z7610 ×4

== ENCOUNTER 2025-08-19 05:11 | Emergency (ER) | payer MEDICAID ==
[~2025-08-19] VITALS: Ht 175.3 cm; Wt 113.0 kg
[~2025-08-19 05:11] MED LIST changes: -AMLO10TA80 MT; +AMLO5TAB88 MT; -FAMO-134 MT; -MAG355OR21 MT; +NITR100C MT; -P20 MT; -TOPUD MT; -[UNRECOGNIZED DRUG - OTHER]
[2025-08-19 05:14] VITALS: O2SAT 100
[2025-08-19] MEDS: SODIUM CHLORIDE 0.9% 1,000 ML IV ONE (06:02)
[2025-08-19] MEDS: PANTOPRAZOLE SODIUM 40 MG/VIAL IV ONE (06:03)
[2025-08-19] MEDS: MORPHINE SULFATE 4 MG/ML INJ (FOR IV/IM USE) IV ONE (06:03)
[2025-08-19] MEDS: ONDANSETRON HCL 4MG/2ML INJ IV ONE (06:03)
[2025-08-19] MEDS: HALOPERIDOL LACTATE 5MG/ML VIAL IM ONE (06:04)
[2025-08-19 06:41] LABS: BASOPHILS % 0.5 % (0.0-2.0); EOSINOPHILS % 1.5 % (0.0-5.0); HEMATOCRIT. 36.4 % (36.0-48.0); HEMOGLOBIN. 11.6 g/dL (12.0-16.0); LYMPHOCYTES % 21.4 % (20.0-50.0); MEAN PLATELET VOLUME 8.9 fl (7.4-10.4); MONOCYTES % 6.8 % (2.0-8.0); NEUTROPHILS % 69.8 % (40.0-76.0); PLATELET 359 x1000/uL (130-400); RED BLOOD CELL COUNT 4.90 mill/uL (4.2-5.4); RED CELL DISTRIBUTION WIDTH 16.3 % (11.6-14.6)
[2025-08-19 07:06] LABS: CREATININE 0.9 mg/dL (0.6-1.0)
[2025-08-19 07:07] LABS: ETHANOL BLOOD < 10 mg/dL (<10); HCG SCREEN NEGATIVE; UREA NITROGEN BLOOD 6 mg/dL (9-23)
[2025-08-19 07:08] LABS: ASPARTATE AMINOTRANSFERASE 33 IU/L (<34); BILIRUBIN DIRECT 0.1 mg/dL (<=3.0)
[2025-08-19 07:09] LABS: BILIRUBIN TOTAL 0.5 mg/dL (0.1-1.0); PROTEIN TOTAL 7.0 g/dL (6.0-8.3)
[2025-08-19 07:21] LABS: INR 0.9
[2025-08-19 07:22] LABS: CLARITY URINE CLOUDY (CLEAR); COLOR URINE YELLOW (YELLOW); GLUCOSE URINE 3+ (NEGATIVE); KETONES URINE TRACE (NEGATIVE); LEUKOCYTE ESTERASE URINE NEGATIVE (NEGATIVE); NITRITE URINE NEGATIVE (NEGATIVE); OCCULT BLOOD URINE NEGATIVE (NEGATIVE); PH URINE 6.0 (4.5-8.0); PROTEIN URINE 1+ (NEGATIVE); SPECIFIC GRAVITY URINE 1.039 (1.005-1.030); UROBILINOGEN URINE 1.0 E.U./dL (0.2-1.0)
[2025-08-19 07:43] LABS: BACTERIA URINE 2+; SQUAMOUS EPITHELIAL CELL URINE 3+ /lpf (RARE/1+)
[2025-08-19 07:44] LABS: TRICHOMONAS URINE FEW
[2025-08-19] MEDS ORDERED: METO-293 MT (07:56)
[2025-08-19] MEDS ORDERED: METR-167 MT (07:56)
[2025-08-19] MEDS: METRONIDAZOLE 500 MG PREMIX 100 ML IV NR (08:05)
[2025-08-19] MEDS: METOCLOPRAMIDE HCL 10MG/2ML VIAL IV ONE (08:10)
[2025-08-19 08:16] LABS: *AMPHETAMINES SCREEN URINE NEGATIVE (NEGATIVE); *BARBITURATES SCREEN URINE NEGATIVE (NEGATIVE); *BENZODIAZEPINES SCREEN URINE NEGATIVE (NEGATIVE); *COCAINE SCREEN URINE NEGATIVE (NEGATIVE)
[2025-08-19 08:17] LABS: CANNABINOID URINE SCREEN PRESUMPTIVE POSITIVE (NEGATIVE); ECSTASY MDMA SCREEN URINE NEGATIVE (NEGATIVE); METHADONE URINE SCREEN NEGATIVE (NEGATIVE); OPIATES URINE SCREEN NEGATIVE (NEGATIVE); PHENCYCLIDINE URINE SCREEN NEGATIVE (NEGATIVE)
[2025-08-19 09:01] VITALS: BP 141/81; PULSE 78; RESP 18; TEMP 36.7; O2SAT 100
== END 2025-08-19 09:13 | disposition home or self-care (01) ==
LOC: ER 05:11
DX: K31.84 Gastroparesis (principal); A59.9 Trichomoniasis, unspecified; R11.16 Cannabis hyperemesis syndrome; F12.90 Cannabis use, unspecified, uncomplicated; J45.909 Unspecified asthma, uncomplicated; E11.43 Type 2 diabetes mellitus with diabetic autonomic (poly)neuropathy; Z79.51 Long term (current) use of inhaled steroids; Z79.899 Other long term (current) drug therapy
CPT/HCPCS: 80076; 80305; 80048; 81003; 80320; 84703; 83690; 83735; 85025; 85610; 36415; 74176; 93005; 96361; 96365; 96372; 96375; 99285; J1630; J2765; J3490; J2405; J2470; J2270; J7030; Z7610 ×2; G0480